=== PATIENT | female | born 1985 | race Caucasian/White ===

== ENCOUNTER 2022-12-20 13:59 | Emergency (ER) | payer OTHER, SELFPAY ==
--- NOTE | ~2022-12-20 | XR_ITS ---
EXAMINATION: XR chest 2V DATE: 12/20/2022 15:13 INDICATION: Cough TECHNIQUE: Frontal and lateral views of the chest are obtained COMPARISON: None available FINDINGS: The lungs are free of acute opacities. No pleural effusion or pneumothorax. The cardiomedia stinal silhouette is normal. The visualized bones and soft tissues are unremarkable. IMPRESSION: 1. No acute cardiopulmonary abnormality. Reviewed, dictated and finalized at location L.
[2022-12-20 14:15] VITALS: BP 129/81; PULSE 103; RESP 16; TEMP 36.2; O2SAT 100
--- NOTE | 2022-12-20 15:13 | ED.URI ---
HPI - URI/Sore Throat General Chief Complaint: Upper Respiratory Infection Stated Complaint: Cough Time Seen by Provider: 12/20/22 15:05 Source: patient, RN notes reviewed and old records reviewed Mode of arrival: ambulatory Limitations: no limitations History of Present Illness HPI Narrative: 37 year old female who resets to [facility] care with complaints of continued productive cough and some right sided lateral chest and aabdomen pain from cough. Patient reports that she was seen in the urgent care on the of this month and finished antibiotic and also medrol dose pack with no improvement in her cough Patient reports that she called her doctor and he suggested she come and get xray. of her chest.Patient states that cough is frequent and productive at times of yellowish mucous, denies any acute dyspnea.. MD elicited complaint: cough and other (post nasal drainage) Pertinent past history: seasonal allergies Onset (ago): week(s) (3 weeks total illness) Severity: moderate Able to tolerate fluids by mouth: Yes Treatments prior to arrival: ibuprofen, antibiotics and other (steroid) Related Data Home Medications Medication Instructions Recorded Confirmed bupropion HCl 300 mg 24 hr tablet, mg PO 12/20/22 extended release buspirone 10 mg tablet mg 12/20/22 escitalopram oxalate 20 mg tablet mg 12/20/22 omeprazole 40 mg capsule,delayed mg 12/20/22 release Allergies Allergy/AdvReac Type Severity Reaction Status Date / Time NSAIDS (Non-Steroidal Allergy Swelling Verified 12/20/22 15:01 Anti-Inflamma Sulfa (Sulfonamide Allergy Hives Verified 12/20/22 15:01 Antibiotics) Review of Systems Review of Systems: CONSTITUTIONAL: Denies malaise, chills, sweats, or fever. EYES: Denies visual changes, redness, or discharge. ENT: Reports rhinorrhea, congestion, sinus pain,no otalgia and no sore throat. CARDIOVASCULAR: Denies acute chest pain, palpitations, or edema. RESPIRATORY: Reports cough.? Denies dyspnea. GASTROINTESTINAL: Denies abdominal pain, nausea, vomiting, diarrhea, upper right abdomen lateral chest pain with cough SKIN: Denies rash or itching. MUSCULOSKELETAL: Denies myalgia. NEUROLOGIC: Denies headache. All systems reviewed & are unremarkable except as noted in HPI and below PMFSH Past Medical History Medical History (Updated 12/21/22 @ 16:34 by Krysten Ryan NP) Mixed anxiety and depressive disorder Social History Social History (Updated 12/21/22 @ 16:27 by Krysten Ryan NP) Smoking status: Never smoker Alcohol intake: current Alcohol use details: rare Substance use type: does not use Living arrangements: with family Gender identity (if verbalized by the patient): Female Comments At time of signature, agree with nursing past medical, surgical, social and family history. There is no relevant family history pertinent to the presenting complaint Exam Narrative: GENERAL: Well-appearing, well-nourished, and in no acute distress. HEAD: Normocephalic EYES: PERRLA, conjunctivae clear ENT: Nares clear, turbinates edematous and erythematous, clear discharge. Mucous membranes moist. TM pearly dimas with dull light reflex bilaterally; no tragal tenderness. Oropharynx erythematous without lesions. Tonsils not enlarged and without exudate, no drooling, no hoarseness, no trismus, uvula midline.post nasal drainage NECK: Supple. No lymphadenopathy CHEST: Clear to auscultation, breath sounds equal. No wheezing, rhonchi, rales, or stridor. No respiratory distress, speaks in full sentences.persistent cough productive at times SAO2 100% on room air HEART: Regular rate and rhythm. No murmur heard. SKIN: Warm, dry, no rash. NEURO: Alert and oriented x3. PSYCH: Normal mood and affect Course Course Emergency Course: Patient is aware of diagnosis, understands and agrees to treatment plan.? Anticipatory guidance given.? Patient agrees to follow-up
== END 2022-12-20 15:30 | disposition home or self-care (01) ==
PROVIDERS: Emergency Provider Registered Nurse; PCP Physician Assistant
DX: J06.9 Acute upper respiratory infection, unspecified (principal); Z79.899 Other long term (current) drug therapy
CPT/HCPCS: 71046; 99213; G0463

== ENCOUNTER 2023-03-09 13:28 | Emergency (ER) | payer OTHER, SELFPAY ==
[2023-03-09 13:39] VITALS: BP 134/84; PULSE 84; RESP 16; TEMP 36.9; O2SAT 100
--- NOTE | 2023-03-09 13:42 | ED.EYEPROB ---
HPI - Eye Problem General Chief complaint: Eye Problems Stated complaint: Right Eye Irritation Time Seen by Provider: 03/09/23 13:40 Source: patient Mode of arrival: ambulatory Limitations: no limitations History of Present Illness HPI Narrative: Adrianna is a 37-year-old female patient presenting to the clinic today with complaints of right eye irritation that started this morning. She reports that her eye is itchy and she has some green drainage coming from the right eye. Denies any known injury to the right eye. Visual acuity obtained in the clinic and is normal. Related Data Home Medications Medication Instructions Recorded Confirmed bupropion HCl 300 mg 24 hr tablet, mg PO 12/20/22 extended release buspirone 10 mg tablet mg 12/20/22 escitalopram oxalate 20 mg tablet mg 12/20/22 omeprazole 40 mg capsule,delayed mg 12/20/22 release montelukast 10 mg tablet mg 03/09/23 03/09/23 Allergies Allergy/AdvReac Type Severity Reaction Status Date / Time NSAIDS (Non-Steroidal Allergy Swelling Verified 12/20/22 15:01 Anti-Inflamma Sulfa (Sulfonamide Allergy Hives Verified 12/20/22 15:01 Antibiotics) Review of Systems Review of Systems: Pertinent positives per HPI. Patient denies any fever, chills, rash, headache, visual changes, dizziness, cough, runny nose, sore throat, shortness of breath, chest pain, palpitations, nausea, vomiting, diarrhea, constipation, abdominal pain, or any urinary issues. PMFSH Past Medical History Medical History Mixed anxiety and depressive disorder Social History Social History Smoking status: Never smoker Alcohol intake: current Alcohol use details: rare Substance use type: does not use Living arrangements: with family Gender identity (if verbalized by the patient): Female Comments At the time of my signature, I reviewed and agree with the nursing past medical, surgical, social, and family history. There is no relevant family history pertinent to the patient complaint. Exam Narrative: General: Well-developed, well nourished, in no apparent distress Head: Normocephalic, atraumatic Eyes: Pupils equally round and reactive to light bilaterally, EOM intact, left sclera and conjunctive clear, no discharge, lids normal, right sclera and conjunctiva injected with green mucopurulent discharge with mild lids swelling Ears: TMs intact and clear, ear canals clear, no drainage, grossly hearing normal. Nose: Nares patent, no discharge, no inflammation, no sinus tenderness. Mouth: Oropharynx without lesions or masses, good dentition, MMM. Neck: Supple, trachea midline, no enlargement of anterior or posterior cervical nodes, no thyroid masses or goiter palpable. Cardio: Regular rate and rhythm, s1 and s2 normal, no murmur appreciated. Resp: Clear to auscultation bilaterally anteriorly and posteriorly, no rhonchi, rales, wheezing or rubs Course Course Emergency Course: Portions of this record may have been created with voice recognition software. Level of Care: Express Care Visit Vital Signs Vital signs: Vital Signs Temperature 36.9 C 03/09/23 13:39 Pulse Rate 84 03/09/23 13:39 Respiratory Rate 16 03/09/23 13:39 Blood Pressure 134/84 03/09/23 13:39 Pulse Oximetry 100 03/09/23 13:39 Oxygen Delivery Room Air 03/09/23 13:39 Temperature 36.9 C 03/09/23 13:39 Pulse Rate 84 03/09/23 13:39 Respiratory Rate 16 03/09/23 13:39 Blood Pressure 134/84 03/09/23 13:39 Pulse Oximetry 100 03/09/23 13:39 Oxygen Delivery Room Air 03/09/23 13:39 Vital signs reviewed MDM - Eye Problem MDM Narrative Medical decision making narrative: At the time of visit patient is resting comfortably on the exam table. Patient appears to be nontoxic. I suspect patient has right conjunctivitis. Prescription for tob
== END 2023-03-09 13:55 | disposition home or self-care (01) ==
PROVIDERS: Emergency Provider Nurse Practitioner Family; PCP Physician Assistant
DX: H10.31 Unspecified acute conjunctivitis, right eye (principal)
CPT/HCPCS: 99213; G0463